=== PATIENT | male | born 1990 ===

== ENCOUNTER 2019-09-16 08:51 | Emergency (ER) | payer SELFPAY ==
[2019-09-16] MEDS ORDERED: Bicillin LA 2.4 MILL.UNITS/4 ML SYRINGE ONE ×2 (09:28→09:30)
== END 2019-09-16 10:20 | disposition home or self-care (01) ==
LOC: ERS 08:51
DX: J02.9 Acute pharyngitis, unspecified (principal); I10 Essential (primary) hypertension; E66.9 Obesity, unspecified
CPT/HCPCS: 96372; 99283; J0561